=== PATIENT | female | born 1985 | race Caucasian/White ===

== ENCOUNTER 2022-08-04 07:02 | Day surgery (SDC) | payer OTHER ==
[2022-08-04] MEDS ORDERED: Propofol 200 MG/20 ML SDV ONE (07:27)
[2022-08-04] MEDS ORDERED: Midazolam 1 MG/ML 2 ML SDV ONE (07:27)
[2022-08-04] MEDS ORDERED: fentaNYL 50 MCG/ML SDV ONE (07:27)
[2022-08-04] MEDS ORDERED: Dextrose 5%-Lactated Ringers 1,000 ML IV SCH (07:30)
[2022-08-04 10:05] VITALS: BP 119/61; PULSE 54
== END 2022-08-04 10:21 | disposition home or self-care (01) ==
LOC: JP.SDS 07:02
PROVIDERS: ATTEND Surgery
DX: R13.13 Dysphagia, pharyngeal phase (principal)
CPT/HCPCS: 43239; 43248; 64520; 81025; 87081; J2250; J2704; J3010; J7121